=== PATIENT | female | born 1960 | race Caucasian/White ===

== ENCOUNTER 2017-12-10 11:34 | Emergency (ER) | payer OTHER ==
[~2017-12-10] VITALS: Ht 165.1 cm; Wt 59.4 kg
[2017-12-10] MEDS ORDERED: ATACAND HCT 161 EACH PO (11:49)
[2017-12-10] MEDS ORDERED: PERCOCET 5-3251 EACH PO (13:17)
[2017-12-10] MEDS ORDERED: KEFLEX500 M1 PO (13:17)
[2017-12-10 14:22] VITALS: BP 110/80
== END 2017-12-10 14:22 | disposition home or self-care (01) ==
LOC: M.ERS 11:34
DX: S61.202A Unspecified open wound of right middle finger without damage to nail, initial encounter (principal); Z88.2 Allergy status to sulfonamides; Z88.1 Allergy status to other antibiotic agents; X58.XXXA Exposure to other specified factors, initial encounter; Y93.89 Activity, other specified; Y92.89 Other specified places as the place of occurrence of the external cause; Y99.8 Other external cause status